=== PATIENT | female | born 1955 | race Caucasian/White ===

== ENCOUNTER → 2023-01-22 11:10 | Outpatient (BNVA) | payer MEDICARE, SELFPAY | PROVIDERS: PCP Internal Medicine; Visit Provider Neurological Surgery | DX: M41.56 Other secondary scoliosis, lumbar region (principal) | CPT/HCPCS: 99212 ==

== ENCOUNTER 2023-05-26 08:56 | Inpatient (IN) | payer MEDICARE, SELFPAY ==
[2023-05-09 12:00] VITALS: BMI 42.9
--- NOTE | 2023-05-21 14:38 | P.CONAN_ITS ---
Documented by User: Rosy Nolan NP 05/21/23 14:55 HPI - Anesthesia Eval Consult details Narrative: 67yo F for L2-3,L3-4,L4-5, Transkambin Lumbar Interbody Fusion Medically optimized by PCP 01/2023 Pt was not available for PAT d/t recent fall. Elquis for afib. Follows [facility] [id number]. Last visit 11/2022, stable. Asthma/ANA. Follows pulmo. Stable 09/2022 Mechanical fall 05/2023 with lac, large bruising vs hematoma, ? cellulitis. No DVT. Surgeon office aware. Final ok for surgery by SELVIN Jacobs 05/21/23 [facility] Active Problems Active Problems: All Active Problems (Updated 05/09/23 @ 12:42 by Ariane Morales RN) Scoliosis of lumbar region due to degenerative disease of spine in adult (Acute) Past Medical History Medical History (Updated 05/26/23 @ 09:13 by Patience Alcala RN) Bilateral cataracts Esophageal dilatation PAF (paroxysmal atrial fibrillation) Sleep apnea Asthma GERD (gastroesophageal reflux disease) Obesity HTN (hypertension) Back pain Surgical History Surgical History (Updated 05/09/23 @ 12:47 by Ariane Morales RN) History of lumbar laminectomy for spinal cord decompression History of total left knee replacement (TKR) History of total right knee replacement (TKR) Hx of cholecystectomy Social History Social History Are you a primary rn progressive care unit to a significant other at home: No Do you presently have visiting nurse or other home services: No Patient Tobacco Use Status: Never used Tobacco Use of substances other than those prescribed or required for medical reasons: No Have you been hit, kicked, punched, or otherwise hurt by someone within the past year? If so, by whom?: No Are you DNR?: No Advance Directives: No Advance Directives on File: No Recently lost weight without trying: No Eating poorly because of decreased appetite: No Nutrition Risks: No Nutritional Risk Patient : No : No Poor oral hygiene: Yes (crowns in the lower) Meds Allergies Allergy/AdvReac Type Severity Reaction Status Date / Time meperidine [Demerol] Allergy Severe Nausea and Verified 05/26/23 09:12 Vomiting Home Medications Medication Instructions Recorded Confirmed Last Taken Type trazodone 50 mg tablet 150 mg PO BEDTIME PRN Insomnia 11/23/20 05/09/23 Unknown History azelastine 137 mcg (0.1 %) nasal 1 spray intranasal BID 01/22/23 05/09/23 Unknown History spray aerosol cyclobenzaprine 10 mg tablet 10 mg PO TID PRN muscle spasm 01/22/23 05/09/23 Unknown History fluconazole 150 mg tablet 150 mg PO ONCE PRN Vaginal 01/22/23 05/09/23 Unknown History Irritation fluticasone 250 mcg-salmeterol 50 1 ea inhalation BID 01/22/23 05/09/23 05/26/23 History mcg/dose blistr powdr for inhalation furosemide 40 mg tablet 40 mg PO BID 01/22/23 05/09/23 Unknown History metoprolol succinate 100 mg 100 mg PO DAILY 01/22/23 05/09/23 05/26/23 07:30 History tablet,extended release 24 hr verapamil 180 mg tablet,extended 180 mg PO BID 01/22/23 05/09/23 05/26/23 07:30 History release apixaban 5 mg tablet (Eliquis) 5 mg PO BID 05/09/23 05/09/23 05/20/23 History celecoxib 200 mg capsule 200 mg PO BID 05/09/23 05/09/23 05/25/23 History cinnamon bark 500 mg capsule 1,000 mg PO DAILY 05/09/23 05/09/23 Unknown History (Cinnamon) dicyclomine 20 mg tablet 20 mg PO Q8H 05/09/23 05/09/23 Unknown History docusate sodium 100 mg capsule 100 mg PO BID PRN Constipation 05/09/23 05/09/23 Unknown History magnesium 250 mg tablet 250 mg PO DAILY 05/09/23 05/09/23 Unknown History montelukast 10 mg tablet 10 mg PO DAILY 05/09/23 05/09/23 05/26/23 07:30 History nystatin 500,000 unit tablet 1,000,000 unit PO Q8-10H 05/09/23 05/09/23 Unknown History omega 2-nrp-rlk-fish oil 1,200 mg 1 cap PO DAILY 05/09/23 05/09/23 05/25/23 History (144 mg-216 mg) capsule (Fish Oil) pantoprazole 40 mg tablet,delayed 40 mg PO BID 05/09/23 05/09/23 05/26/23 07:30 History release potassium chloride 10 mEq 40 meq PO BID 05/09/23 05/09/23 Unknown History tablet,extended release vitamin B complex 1 cap PO DAILY 05/09/23 05/09/23 Unknown History pregabalin 100 mg capsule 100 mg PO TID 05/26/23 05/26/23 Unknown History Exam Exam Date and Time: May 21, 2023 1438 Height,Weight and Vital Signs: Height 5 ft 4 in Weight 113.398 kg Pertinent Lab Results Pertinent Lab Results: CBC and BMP 05/2023 Narrative Narrative: EKG 11/2022 NSR @ 74 Assessment and Plan Assessment Anesthesia Assessment: Chart Reviewed Documented by User: Dom Whitfield MD 05/26/23 11:03 [facility] Past Medical History Medical History (Updated 05/26/23 @ 09:13 by Patience Alcala RN) Bilateral cataracts Esophageal dilatation PAF (paroxysmal atrial fibrillation) Sleep apnea Asthma GERD (gastroesophageal reflux disease) Obesity HTN (hypertension) Back pain Family History Family history of problems with anesthesia: No Surgical History Surgical History (Updated 05/09/23 @ 12:47 by Ariane Morales RN) History of lumbar laminectomy for spinal cord decompression History of total left knee replacement (TKR) History of total right knee replacement (TKR) Hx of cholecystectomy History of Problems with Anesthesia: No Social History Social History Are you a primary rn progressive care unit to a significant other at home: No Do you presently have visiting nurse or other home services: No Patient Tobacco Use Status: Never used Tobacco Use of substances other than those prescribed or required for medical reasons: No Have you been hit, kicked, punched, or otherwise hurt by someone within the past year? If so, by whom?: No Are you DNR?: No Advance Directives: No Advance Directives on File: No Recently lost weight without trying: No Eating poorly because of decreased appetite: No Nutrition Risks: No Nutritional Risk Patient : No : No Poor oral hygiene: Yes (crowns in the lower) Meds Allergies Allergy/AdvReac Type Severity Reaction Status Date / Time meperidine [Demerol] Allergy Severe Nausea and Verified 05/26/23 09:12 Vomiting Home Medications Medication Instructions Recorded Confirmed Last Taken Type trazodone 50 mg tablet 150 mg PO BEDTIME PRN Insomnia 11/23/20 05/09/23 Unknown History azelastine 137 mcg (0.1 %) nasal 1 spray intranasal BID 01/22/23 05/09/23 Unknown History spray aerosol cyclobenzaprine 10 mg tablet 10 mg PO TID PRN muscle spasm 01/22/23 05/09/23 Unknown History fluconazole 150 mg tablet 150 mg PO ONCE PRN Vaginal 01/22/23 05/09/23 Unknown History Irritation fluticasone 250 mcg-salmeterol 50 1 ea inhalation BID 01/22/23 05/09/23 05/26/23 History mcg/dose blistr powdr for inhalation furosemide 40 mg tablet 40 mg PO BID 01/22/23 05/09/23 Unknown History metoprolol succinate 100 mg 100 mg PO DAILY 01/22/23 05/09/23 05/26/23 07:30 History tablet,extended release 24 hr verapamil 180 mg tablet,extended 180 mg PO BID 01/22/23 05/09/23 05/26/23 07:30 History release apixaban 5 mg tablet (Eliquis) 5 mg PO BID 05/09/23 05/09/23 05/20/23 History celecoxib 200 mg capsule 200 mg PO BID 05/09/23 05/09/23 05/25/23 History cinnamon bark 500 mg capsule 1,000 mg PO DAILY 05/09/23 05/09/23 Unknown History (Cinnamon) dicyclomine 20 mg tablet 20 mg PO Q8H 05/09/23 05/09/23 Unknown History docusate sodium 100 mg capsule 100 mg PO BID PRN Constipation 05/09/23 05/09/23 Unknown History magnesium 250 mg tablet 250 mg PO DAILY 05/09/23 05/09/23 Unknown History montelukast 10 mg tablet 10 mg PO DAILY 05/09/23 05/09/23 05/26/23 07:30 History nystatin 500,000 unit tablet 1,000,000 unit PO Q8-10H 05/09/23 05/09/23 Unknown History omega 1-xph-eke-fish oil 1,200 mg 1 cap PO DAILY 05/09/23 05/09/23 05/25/23 History (144 mg-216 mg) capsule (Fish Oil) pantoprazole 40 mg tablet,delayed 40 mg PO BID 05/09/23 05/09/23 05/26/23 07:30 History release potassium chloride 10 mEq 40 meq PO BID 05/09/23 05/09/23 Unknown History tablet,extended release vitamin B complex 1 cap PO DAILY 05/09/23 05/09/23 Unknown History pregabalin 100 mg capsule 100 mg PO TID 05/26/23 05/26/23 Unknown History Exam Airway Mallampati Class: II TM Dist: >3cm Neck ROM: Limited Heart: rrr Lungs: cta Assessment and Plan Final Anesthetic Review Family History of Problems with Anesthesia: No History of Problems with Anesthesia: No NPO: Yes ASA Class: III Final Preanesthetic Review: No Changes in Pt Med Stat, Meds/Allgs Chart Revi ewed, Consent Obtained/Reviewed and Anes Risks/Benef Reviewed Patient Risk: Intermediate Procedure Risk: Intermediate Anesthetic Plan Anesthetic Plan: GA and Agree w/ Assess. and Plan Disposition: Standard PACU
[2023-05-26] VITALS (13 sets, daily range): BP systolic 99–129; BP diastolic 56–89; PULSE 66–81; RESP 12–20; TEMP 35.7–36.2; O2SAT 93–100; BMI 45.0
--- NOTE | 2023-05-26 09:24 | PHA.MEDREC ---
Pharmacy Consult ? Medication Reconciliation Pharmacy has completed the medication reconciliation. Reviewed med rec done by nursing
--- NOTE | 2023-05-26 09:30 | MHC.SHP ---
Pre-Procedural Eval Section A Date of Service: 05/26/23 The patient is an INPATIENT: No Changes since office visit: No Cold of Flu in the past 2 weeks, No New Medical Problems, No Changes in Medication and No Patient answered all questions The History & Physical has been completed within 30 days and I have reviewed it.: No Section B Chief Complaint: s/p l2-5 Transkambin Allergies: Allergies Allergy/AdvReac Type Severity Reaction Status Date / Time meperidine [Demerol] Allergy Severe Nausea and Verified 05/26/23 09:12 Vomiting Review of Systems Sugical H&P ROS: Negative: Constitution, Cardiovascular, Respiratory, Neurological, Psychiatric, Hem-Onc, Allergic/Immunologic, Gastrointestinal, Genitourinary, Musculoskeletal, Integumentary, Endocrine and Eyes/Ears/Nose/Throat Exam Surgical H&P Exam: Not Evaluated: HEENT, Not Evaluated: Heart, Not Evaluated: Lungs, Not Evaluated: Extremities, Not Evaluated: Abdomen, Not Evaluated: Skin and Not Evaluated: Neurological Plan Diagnosis/Plan: Unchanged I have reviewed the history and physical and performed a pertinent physical examination on my patient. No changes have occurred unless specified. L2-5 oblique transkambin lateral lumbar interbody fusion Time Spent With Patient Time: Total time managing care of this patient today __10__ minutes.
[2023-05-26] MEDS: Lactated Ringers 1,000 ML 100 ML IVCONT (10:00)
[2023-05-26] MEDS: methocarbamoL 750 MG TABLET PO (10:03)
[2023-05-26] MEDS: Gabapentin 300 MG CAPSULE PO (10:03)
--- NOTE | 2023-05-26 15:01 | W.PM.OPN ---
Operative Note Operative Note Date of Service: 05/26/23 Narrative: Preoperative diagnosis: 1) Lumbar degenerative scoliosis; back pain; bilateral lumbar radiculopathy Postprocedure diagnosis: 1) same as above Procedure: 1) L2-3, L3-4 and L4-5oblique lateral lumbar interbody fusion with discectomy, preparation of the endplates and placement of a titanium bullet cage packed with allograft, anterior to the transverse process in modified prone position, with intraoperative biplanar fluoroscopy imaging and electrophysiological monitoring 2) L2-L5 posterior minimally invasive pedicle screw placement and posterior lateral instrumentation and fusion with intraoperative biplanar fluoroscopic imaging and electrophysiological monitoring 3Iinjection of 0.75 Marcaine in paravertebral tissue for postop management Consent Informed Consent was obtained for this operation. I have explained the nature, purpose and benefits of the operation. I have discussed the risks and benefit of the operation including possible complications or adverse events with patient/family. Alternative(s) were discussed with the patient with their relative benefits and risks as well as the consequences of not accepting the operation were included in obtaining consent. Surgeon: BRET KHAN MD, PHD Procedure Assisted By: SELVIN Branham Description of Procedure: This is a complex surgery on the lumbar spine and an dental hygiene administrative assistant as needed for safety of the surgery for setup of instrumentation, retraction and closing. History: This 67-year-old female is suffering from a lumbar degenerative scoliosis with back pain and bilateral lumbar radiculopathy. She has COPD and AFib and bilateral leg edema and therefore a minimally invasive procedure seems to be the most appropriate to avoid long surgery times and significant blood loss.The patient was offered an oblique lumbar lateral interbody fusion followed by a posterior lateral instrumented fusion L2-L5. The procedure and complications were explained and the patient was consented. Procedure: The patient was brought to the operating room and endotracheally intubated. The patient was positioned on the Migel spine table in a modified prone position for ease of access from the [] side.. 2C arms were installed for fluoroscopy. Prepping and draping was done followed by timeout. The landmarks, including spinal processes, transverse processes, disc space, endplates and pedicles are identified and marked. The following steps are taken for each specified level: L2-3, L3-4 and L4-5 levels: L2-3: Cage size 10 mm high and 30 mm long titanium; L3-4: Cage size 9 mm high and 33 mm long titanium; L4-5: Cage size 10 mm high and 33 mm long titanium . The patient was turned using the rotation of the surgical table so a near direct anterior lateral approach to the lumbar spine could be achieved. A small incision was then made superior to the mid iliac crest and then using biplanar fluoroscopy visualization, under electrophysiological monitoring and stimulation, we introduced an electrophysiological probe through the retroperitoneal space into the desired disc anterior to the transverse process and then passed it into the disc space after finding a silent window. The sleeve was retained and the probe was removed, then the K wire was passed sequentially into the disc space. A dilating tube was then passed along the same route. Following this, a working channel, a working channel was then passed sequentially into the disc space. The working channel was manually held in position while a series of disc cleaning tools were passed through the channel to remove the affected disc under clear and direct biplanar fluoroscopic visualization, decompress the nerve roots and equal corticated vertebral endplates at this segment. Arthrodesis of the intervertebral space via an anterior retroperitoneal exposure was achieved through Kambin's Mastic and lateral extraforaminal space. Allograft was added into the anterior disc space. The working channel was then removed. A titanium interbody cage tightly packed with allograft was then inserted into the midportion of the intervertebral disc space over a K-wire under biplanar fluoroscopic visualization and intraoperative neuro monitoring. The inter pedicular and intradiscal space was significantly enlarged and disc height was restored to worked normal anatomy there for releasing pressure on the nerve roots visual largely the spinal canal and lateral recess as well as foramen were bilateral decompressed and all bones were confined to the borders of the disc space . the above steps were taken for the L2-3, L3-4 and L4-5 disc spaces The following steps are then taken for each specified level: L2-3 level: Bilateral L2 screws with a diameter of 5 5 x 40 mm; bilateral L3 screws with a diameter of 6.5 x 45 mm; bilateral L4 screws with a diameter of 6.5 x 45 mm; bilateral L5 screws were diameter 6545 mm The posterolateral fusion is initiated after the patient is rotated to a true prone position. The entry point to the pedicle is identified in the AP and lateral views and then the skin incision is injected with local anesthetic. We entered the pedicle with the pediguard tap after which a K-wire was introduced into the vertebral body. Additionally, I used a small periosteal decorticator along the screws to refresh the surface of the bone and facet and I put some amount of allograft for additional stability for the posterolateral fusion. Over the K-wire we insert pedicle screws bilaterally. After the screws were placed, we put the florina in place and under fluoroscopic imaging, we locked the [address] and removed the screw tops and then each incision has been closed with 0 Vicryl for the fascia and a 3-0 Vicryl for the subdermal layer. Steri-Strips were used to approximate the incisions. An OpSite with Tegaderm was used to cover the incision. Final x-rays and AP and lateral projection showed good position of the interbody device and instrumentation. All sponge and needle counts were correct. The patient was extubated and transported in a stable condition to the recovery room. 2-0 Vicryl This procedure was done with the aid of a physician dental hygiene administrative assistant as a qualified resident was not available. Anesthesia: General Estimated Blood Loss (ml): 45 Specimen: None Duration of Surgery: 3 hours Postoperative Plan: Admit to inpatient for observation
[2023-05-26] MEDS: HYDROmorphone HCl 0.5 MG/0.5 ML SYRINGE 0.25 MG IVPUSH ×2 (16:22→16:45)
[2023-05-26] MEDS: 0.9 % Sodium Chloride 1,000 ML 75 ML IVCONT (18:35)
[2023-05-26] MEDS: oxyCODONE HCl Immed Release 5 MG TABLET 10 MG PO (18:38)
[2023-05-26] MEDS: Acetaminophen 1,000 MG/100 ML PIGGYBACK 400 MG IV (19:31)
[2023-05-26] MEDS: Ketorolac Tromethamine 15 MG/ML VIAL IVPUSH (19:31)
[2023-05-26] MEDS: Pregabalin 100 MG CAPSULE PO (19:34)
[2023-05-26] MEDS: Docusate Sodium 100 MG CAPSULE PO (19:34)
[2023-05-26] MEDS: Furosemide 40 MG TABLET PO (19:35)
[2023-05-26] MEDS: Potassium Chloride ER 10 MEQ TABLET.ER 40 MEQ PO (19:35)
[2023-05-26] MEDS: Omeprazole 20 MG CAPSULE.DR PO (19:35)
[2023-05-26] MEDS: ceFAZolin Sodium/Dextrose,Iso 2 GM/50 ML PIGGYBACK IV (19:54)
[2023-05-26] MEDS: HYDROmorphone HCl 1 MG/ML SYRINGE IVPUSH (20:18)
[2023-05-26] MEDS: VerapamiL HCL SR 180 MG TABLET.ER PO (20:18)
[2023-05-27] VITALS: BP 123/64; PULSE 74; RESP 18; TEMP 36.1; O2SAT 96
[2023-05-27] MEDS: Ketorolac Tromethamine 15 MG/ML VIAL IVPUSH ×2 (01:20→07:33)
[2023-05-27] MEDS: Acetaminophen 1,000 MG/100 ML PIGGYBACK 400 MG IV ×2 (01:22→07:32)
[2023-05-27] MEDS: ceFAZolin Sodium/Dextrose,Iso 2 GM/50 ML PIGGYBACK IV ×2 (01:39→07:34)
[2023-05-27 04:00] VITALS: BP 110/60; PULSE 80; RESP 20; TEMP 36.3; O2SAT 95
[2023-05-27] MEDS: HYDROmorphone HCl 1 MG/ML SYRINGE IVPUSH (04:40)
[2023-05-27 07:19] VITALS: BP 108/58; PULSE 76; RESP 20; TEMP 36.1; O2SAT 97
--- NOTE | 2023-05-27 07:53 | HO.NEUROPN_ITS ---
Neurosurgery Operative Note Date of Service: 05/27/23 Narrative: POD: 1 Procedure: L2-3, L3-4, L4-5 oblique lateral lumbar interbody fusion Patient reports she is up and ambulating with assistance but does have difficulty at times with weight bearing on bilateral legs. She is otherwise doing well. She feels her pain is still prevalent but is much better than pre- operatively. She still reports moderate low back pain, with good relief with pain medication. She initially had difficulty voiding was able to void 700 mL last night per nursing. She has been able a tolerate diet. Afebrile, vital signs stable. Full strength in right LE, but some reduced strength in left LE. She has some nonspecific sensation changes in the lateral side of her left foot and lateral lower leg, likely secondary to the site of surgery. We are sure that this will resolve with time/therapy. Back dressings have some staining without signs of hematoma. No active sanguineous drainage. Area is dry. Plan: Patient meets criteria to be transferred [facility]. She was seen at bedside with Dr. Chaparro. A physical prescription of oxycodone was given to her nurse to be filled at transfer. She will need to be evaluated by Physical therapy before being discharged/transferred.
--- NOTE | 2023-05-27 08:00 | PM.DS ---
DS: Providers Provider Date of Service: 05/27/23 Date of admission: 05/26/23 08:56 Primary care physician: Radha June MD DS: Summary Time Spent with Patient Time attestation: Total time managing care of this patient today ____ minutes. Discharge coordination time: Less than 30 minutes Quality: Safe Use of Opioids Does Pt have an Active Cancer Diagnosis on the Problem List?: No Quality: Stroke Does the patient have a stroke diagnosis?: No Physical Exam Vital Signs: Vital Signs: Last Vital Signs Temp 96.9 F 05/27/23 07:19 Pulse 76 05/27/23 07:19 Resp 20 05/27/23 07:19 BP 108/58 L 05/27/23 07:19 Pulse Ox 97 05/27/23 07:19 O2 Del Method CPAP 05/27/23 07:19 O2 Flow Rate 4 05/26/23 20:00 BMI result Body Mass Index 45.0 DS: Data Data Completed and Pending Labs on day of discharge: Laboratory Results - last 24 hr 05/26/23 09:08 Blood Type O Positive Antibody Screen NEGATIVE Discharge Plan Discharge Anticipated Discharge Date/Time: 05/27/23 08:00 Patient Disposition: Xfer Inpatient Rehab Fac Discharge Diagnosis: s/p lumbar fusion surgery Referrals: Radha June MD [Primary Care Provider] - 1 Week Discharge Medications: Continued trazodone 50 mg tablet 150 mg PO BEDTIME PRN (Reason: Insomnia) Rx Instructions: 2 to 4 tabs at bedtime celecoxib 200 mg capsule 200 mg PO BID nystatin 500,000 unit tablet 1,000,000 unit PO Q8-10H pantoprazole 40 mg tablet,delayed release (DR/EC) 40 mg PO BID montelukast 10 mg Tablet 10 mg PO DAILY dicyclomine 20 mg tablet 20 mg PO Q8H potassium chloride 10 mEq tablet extended release 40 meq PO BID docusate sodium 100 mg Capsule 100 mg PO BID PRN (Reason: Constipation) magnesium 250 mg Tablet 250 mg PO DAILY vitamin B complex Capsule 1 cap PO DAILY cinnamon bark [Cinnamon] 500 mg Capsule 1,000 mg PO DAILY pregabalin 100 mg Capsule 100 mg PO TID fluticasone propion-salmeterol 250-50 mcg/dose blister with device 1 ea inhalation BID cyclobenzaprine 10 mg tablet 10 mg PO TID PRN (Reason: muscle spasm) verapamil 180 mg tablet extended release 180 mg PO BID metoprolol succinate 100 mg tablet extended release 24 hr 100 mg PO DAILY furosemide 40 mg tablet 40 mg PO BID azelastine 137 mcg (0.1 %) aerosol,spray 1 spray intranasal BID fluconazole 150 mg tablet 150 mg PO ONCE PRN (Reason: Vaginal Irritation) Held Eliquis 5 mg tablet 5 mg PO BID Hold Instructions: Resume on 05/30/23. hold for 3 days post-operatively omega 8-qxg-sqe-fish oil [Fish Oil] 1,200 (144-216) mg Capsule 1 cap PO DAILY Hold Instructions: Resume on 06/03/23. Discharge Orders: Discharge Order (Routine); Ordered 05/27/23 Ordered By: Reynaldo Ansari Diet: Advance to usual diet Activity on Discharge: As tolerated Stand Alone Forms: Patient Portal Discharge page Care Plan Goals: return to activity as tolerated. Health Concerns: None. Plan of Treatment: Follow-up in office in 2-3 weeks Assessment: patient is stable
[2023-05-27] MEDS: Fluticasone/Vilanterol 100/25 BLST.W.DEV 1 PUFF INHALE (08:11)
[2023-05-27 08:15] VITALS: PULSE 74; RESP 16; O2SAT 98
[2023-05-27] MEDS: Docusate Sodium 100 MG CAPSULE PO (08:27)
[2023-05-27] MEDS: Omeprazole 20 MG CAPSULE.DR PO (08:27)
[2023-05-27] MEDS: Pregabalin 100 MG CAPSULE PO (08:27)
[2023-05-27] MEDS: Magnesium Oxide 400 MG TABLET 200 MG PO (08:27)
[2023-05-27] MEDS: Metoprolol Succinate ER 100 MG TAB.ER.24H PO (08:27)
[2023-05-27] MEDS: Furosemide 40 MG TABLET PO (08:27)
[2023-05-27] MEDS: Potassium Chloride ER 10 MEQ TABLET.ER 40 MEQ PO (08:27)
[2023-05-27] MEDS: VerapamiL HCL SR 180 MG TABLET.ER PO (08:27)
[2023-05-27] MEDS: Montelukast Sodium 10 MG TABLET PO (08:27)
--- NOTE | 2023-05-27 08:58 | MHC.CM.PN ---
IMM DELIVERED PT LIVES ALONE. USES CANE NEEDED AND C PAP AT NIGHT. VENDOR IS [facility]. NO HCP BUT WILLING TO DO ONE + COVID VAX PCP DR. CRUZ AT [facility]. + THRIVE ASSESSMENT- RESOURCE GIUIDE PROVIDED. DP: [facility]. HAS RECOMMENDED STR, FIRST CHOICE [facility]. REFERRAL SENT, AWAITING RESPONSE. PT HAS BEEN MEDICALLY CLEARED FOR DC. WILL AWAIT SNF RESPONSES. CM WILL CONTINUE TO FOLLOW.
[2023-05-27] MEDS: oxyCODONE HCl Immed Release 5 MG TABLET 10 MG PO (10:52)
--- NOTE | 2023-05-27 11:35 | MHC.CM.PN ---
DP UPDATE: PLAN TO TRANSFER TO [facility] AT 2PM VIA BLS WITH [facility]. PT AND RN ARE AWARE.
--- NOTE | 2023-05-27 14:32 | HO.POSTANES ---
Post Anesthesia Evaluation Post Anesthesia Evaluation Date of Service: 05/27/23 Vital Signs: Vital Signs Temp Pulse Resp BP Pulse Ox O2 Del Method 05/27/23 08:15 74 16 05/27/23 07:19 96.9 F 76 20 108/58 L 97 CPAP 05/27/23 04:00 97.3 F 80 20 110/60 95 Nasal Cannula Anesthesia: General Endotracheal-GETA Mental Status: Awake Pain Control: Satisfactory Nausea/Vomiting: None Hydration: Adequate Anesthesia-Related Issues: No Anes. Related Issues
== END 2023-05-27 14:05 | DRG 460 ==
LOC: HO.SSSA 08:58 → HO.S3 15:58
PROVIDERS: Neurological Surgery; Admitting Provider Physician Assistant; PCP Internal Medicine; Visit Provider Physician Assistant
PROC: 0SG1070 Fusion of 2 or more Lumbar Vertebral Joints with Autologous Tissue Substitute, Anterior Approach, Anterior Column, Open Approach (ICD-10-PCS; principal; 2023-05-26 10:40)
DX: M54.40 Lumbago with sciatica, unspecified side (principal); G47.33 Obstructive sleep apnea (adult) (pediatric); Z79.01 Long term (current) use of anticoagulants; Z79.51 Long term (current) use of inhaled steroids; Z79.899 Other long term (current) drug therapy
CPT/HCPCS: 86850; 86900; 86901; 94640; 97162; C1713; J0131; J0690; J1100; J1170; J1885; J2405; L8699

== ENCOUNTER → 2023-05-26 08:56 | Outpatient (BNV) | payer MEDICARE, SELFPAY | PROVIDERS: Admitting Provider Physician Assistant; PCP Internal Medicine; Visit Provider Neurological Surgery | DX: Z48.89 Encounter for other specified surgical aftercare (principal) | CPT/HCPCS: 20930; 22558; 22585; 22612; 22614; 22842; 22853; 63056; 63057; 99024; 99499 ==

== ENCOUNTER 2023-06-18 12:52 | Outpatient (REF) | payer MEDICARE, SELFPAY | END 2023-06-18 12:53 | disposition home or self-care (01) | LOC: HO.HOSX 12:52 | PROVIDERS: PCP Internal Medicine; Visit Provider Physician Assistant | DX: Z13.89 Encounter for screening for other disorder (principal) ==

== ENCOUNTER 2023-06-18 12:52 | Outpatient (AMB) | payer MEDICARE, SELFPAY ==
--- NOTE | 2023-06-18 13:08 | A.SPINEOV_ITS ---
Intake Intake Visit Reasons: 3 week post op Intake Note: Ms. Fabian is here today for her 1st post-op visit. Aerotriangulation Specialist Required: No Allergies meperidine [Demerol] Allergy (Severe, Verified 05/26/23 09:12) Nausea and Vomiting Assessment & Plan Assessment & Plan (1) S/P lumbar spinal fusion: Code(s): Z98.1 - Arthrodesis status Plan Procedure: L2-3, L3-4, L4-5 oblique lateral lumbar interbody fusion. Savannah comes in today for her 1st postoperative visit. She reports she is very satisfied with the surgery and feels much better than she did pre-operatively. The patient reports she is up walking around and completing the majority of her ADLs. She does continue to rely on a walker to ambulate around her friend's home (who she is currently staying with). She reports that has a new onset of left-sided thigh/leg weakness since her surgery. We discussed how this is likely due to the approach of surgery, and I assured her that should resolve with time. She still reports mild low back pain, with good relief with pain medication. She did report that she would be calling her pharmacy at [facility] to ask her partial refill of her oxycodone medication when she needs it, as she does still feel that she needs to take it for her pain. We will need to do a partial refill when this request is made by her pharmacy and encourage her to remain on OTC medications as monotherapy going forward. She does endorse getting up out of bed and working with physical therapy and occupational therapy but has not been walking much. She was strongly encouraged to get out of bed and ambulate as much as possible without straining herself. We also extensively discussed restrictions of physical therapy and she was advised only to very light strength training and transfer training/ADL assistance. Patient is able to ambulate and rise from a seated position with assistance of a walker. Mobility is intact. Sensation grossly intact. Incision sites are closed, well healing, with no signs of drainage. She still had some Steri- Strips over the incision sites which were removed. We will follow-up with the patient in 6 weeks for her 2nd postoperative visit. At that time we will get x-rays to review with the patient. Reynaldo Chaparro MD,PhD [facility] Coding Level of Care Code Global (46299) Diagnoses S/P lumbar spinal fusion Z98.1
== END 2023-06-18 13:30 | disposition home or self-care (01) ==
PROVIDERS: PCP Internal Medicine; Visit Provider Physician Assistant
DX: Z98.1 Arthrodesis status (principal)
CPT/HCPCS: 99024

== ENCOUNTER 2023-07-30 14:25 | Outpatient (REF) | payer MEDICARE, SELFPAY ==
--- NOTE | ~2023-07-30 | XR_ITS ---
EXAMINATION: XR LUMBOSACRAL SPINE WITH OBLIQUES CLINICAL INFORMATION: Status post arthrodesis COMPARISON: None available. TECHNIQUE: AP, both oblique, and lateral views of the lumbar spine. Lateral view of the lumbosacral junction. FINDINGS: Patient is status post L1-L5 posterior arthrodesis with intervertebral disc spacers placement. Hardware well positioned and there is no instability on flexion and extension views. XR/XR lumbar spine 4V min IMPRESSION: Well positioned hardware in lumbar spine.
== END 2023-07-30 14:26 | disposition home or self-care (01) ==
LOC: HO.HOSX 14:25
PROVIDERS: Visit Provider Physician Assistant
DX: Z98.1 Arthrodesis status (principal)
CPT/HCPCS: 72110

== ENCOUNTER 2023-07-30 14:25 | Outpatient (AMB) | payer MEDICARE, SELFPAY ==
--- NOTE | 2023-07-30 14:45 | A.SPINEOV_ITS ---
Intake Intake Visit Reasons: 2nd post op with Xrays Intake Note: Ms. Fabian is here today for her 2nd post-op visit. Resource Conservationist Required: No Allergies meperidine [Demerol] Allergy (Severe, Verified 05/26/23 09:12) Nausea and Vomiting Assessment & Plan Assessment & Plan (1) S/P lumbar spinal fusion: Code(s): Z98.1 - Arthrodesis status Plan Procedure: L2-3, L3-4, L4-5 oblique lateral lumbar interbody fusion. Savannah comes in today for her 1st postoperative visit. She reports she is very satisfied with the surgery and feels much better than she did pre-operatively. The patient reports she is up walking around and completing the majority of her ADLs. She does continue to rely on a walker to ambulate around her friend's home (who she is currently staying with). She reports that her left-sided thigh/leg weakness has resolved since her last visit. She does endorse getting up out of bed and working with physical therapy and occupational therapy and has been trying to walk more but finds it difficult still to do so. She brought in paperwork today to be filled out for continued leave from work as she is only able to ambulate with the assistance of a walker at this time. I think it is reasonable to allow her another extension out of work as she continues to heal and engage with physical therapy, but we will need to re-evaluate her for any further leave. We reviewed her x-ray imaging from today and compared to her intraoperative x-rays which shows stable placement of her posterior instrumentation with no changes. Patient is able to ambulate and rise from a seated position with assistance of a walker. Mobility is intact. Sensation grossly intact. Incision sites are closed and well healed. Reynaldo Chaparro MD,PhD [facility] Coding Level of Care Code Global (95383) Diagnoses S/P lumbar spinal fusion Z98.1
== END 2023-07-30 15:08 | disposition home or self-care (01) ==
PROVIDERS: PCP Internal Medicine; Visit Provider Physician Assistant
DX: Z98.1 Arthrodesis status (principal)
CPT/HCPCS: 99024

== ENCOUNTER → 2023-07-30 14:25 | Outpatient (BNVA) | payer MEDICARE, SELFPAY | PROVIDERS: PCP Internal Medicine; Visit Provider Physician Assistant ==

== ENCOUNTER 2023-09-17 13:42 | Outpatient (AMB) | payer MEDICARE, SELFPAY ==
--- NOTE | 2023-09-17 13:45 | A.OFFVIS_ITS ---
Intake Intake Visit Reasons: evaluation of new or worsening problem Certified Court/Medical Interpreter Required: No Allergies meperidine [Demerol] Allergy (Severe, Verified 05/26/23 09:12) Nausea and Vomiting [facility] Medical History (Updated 05/26/23 @ 09:13 by Patience Alcala RN) Bilateral cataracts Esophageal dilatation PAF (paroxysmal atrial fibrillation) Sleep apnea Asthma GERD (gastroesophageal reflux disease) Obesity HTN (hypertension) Back pain Surgical History (Updated 06/18/23 @ 13:30 by SELVIN Hicks) History of lumbar laminectomy for spinal cord decompression History of total left knee replacement (TKR) History of total right knee replacement (TKR) Hx of cholecystectomy Social History Household Members: None Housing: House Are you a primary adult daycare coordinator to a significant other at home: No Do you presently have visiting nurse or other home services: No Patient Tobacco Use Status: Never used Tobacco service: No Assessment & Plan Assessment & Plan (1) S/P lumbar spinal fusion: Code(s): Z98.1 - Arthrodesis status Plan Procedure: L2-3, L3-4, L4-5 oblique lateral lumbar interbody fusion. Savannah comes in today for a follow up visit. She reports that she continues to have a slow healing course after her 3 level fusion surgery. She has been making progress and is now ambulating with a cane vs. walker. She reports that she does still have notable weakness from not engaging her leg muscles as much as she was prior to surgery. She inquired about in-person PT as she has not done this yet in the past, and only did PT exercises at home with her home health aid. I will be sending her for 6 weeks of PT to help her continue strength training and ROM. She is continuing to make progress but it is slower than usual. She is only employed display department manager right now and would like to remain out of work while she continues to engage in healing from her spinal surgery. This is acceptable as long as she is engaging in something such as PT. Patient is able to ambulate well and rises from a seated position with assistance of a cane. Mobility is intact. Sensation grossly intact. There is no need for continued routine follow-up with the patient. She may return to work after completing physical therapy. She does continue to make good progress but it is slower than normal. Reynaldo Chaparro MD,PhD [facility] Orders: Orders PT Evaluation and Treatment Today Z98.1 - Arthrodesis status Coding Level of Care Code Global (42968) Diagnoses S/P lumbar spinal fusion Z98.1
== END 2023-09-17 14:12 | disposition home or self-care (01) ==
PROVIDERS: PCP Internal Medicine; Visit Provider Physician Assistant
DX: Z98.1 Arthrodesis status (principal)
CPT/HCPCS: 99213

== ENCOUNTER → 2023-09-17 13:42 | Outpatient (BNVA) | payer MEDICARE, SELFPAY | PROVIDERS: PCP Internal Medicine; Visit Provider Physician Assistant | DX: Z48.89 Encounter for other specified surgical aftercare (principal); Z98.1 Arthrodesis status | CPT/HCPCS: 99212 ==